=== PATIENT | male | born 2000 | race Caucasian/White ===

== ENCOUNTER 2019-09-17 14:34 | Emergency (ER) | payer SELFPAY ==
[~2019-09-17] VITALS: Ht 193 cm; Wt 84.5 kg
[2019-09-17 15:06] VITALS: BP 119/75
[2019-09-17] MEDS ORDERED: IBUPROFEN 200 MG TABLET PO ONE (15:30)
[2019-09-17] MEDS ORDERED: DEXAMETHASONE 4 MG TABLET PO ONE (15:30)
[2019-09-17] MEDS ORDERED: DEXAMETHASONE 4 MG/ML, 5ML ONE (15:31)
[2019-09-17] MEDS ORDERED: IBUPROFEN 600 MG TABLET ONE (15:31)
--- NOTE | 2019-09-17 15:45 | NUR ---
PT MEDICATED PER MAR
[2019-09-17 15:50] LABS: RAPID INFLUENZA A Negative (Negative); RAPID INFLUENZA B Negative (Negative)
== END 2019-09-17 16:12 | disposition home or self-care (01) ==
LOC: ED 16:05
DX: J06.9 Acute upper respiratory infection, unspecified (principal); J02.9 Acute pharyngitis, unspecified
CPT/HCPCS: 71046; 87081; 87400; 87880; 99284